=== PATIENT | male | born 1980 | race African-American/Black ===

== ENCOUNTER 2020-05-23 13:43 | Emergency (ER) | payer BC ==
[~2020-05-23] VITALS: Ht 177.8 cm; Wt 86.2 kg
[2020-05-23] MEDS ORDERED: NAPROSYN500 MG PO (14:44)
[2020-05-23] MEDS ORDERED: CLINDAMYCIN HC300 MG PO (14:44)
== END 2020-05-23 14:59 | disposition home or self-care (01) ==
LOC: ED 13:43
DX: K04.7 Periapical abscess without sinus (principal); Z87.891 Personal history of nicotine dependence